=== PATIENT | male | born 1970 | race Caucasian/White ===

== ENCOUNTER 2016-05-14 06:36 | Emergency (ER) | payer BC, OTHER ==
[~2016-05-14] VITALS: Ht 167.6 cm; Wt 90.7 kg
[2016-05-14 07:00] VITALS: BP 140/100
[2016-05-14] MEDS ORDERED: HYDROmorphone HCL 2 MG/ML VL IM ONE (07:45)
[2016-05-14] MEDS ORDERED: ONDANSETRON HCL 4 MG/2 ML VIAL IM ONE (07:45)
== END 2016-05-14 08:50 | disposition home or self-care (01) ==
LOC: EDBD 06:36 → ER 06:43
DX: M54.5 Low back pain (principal); M54.2 Cervicalgia; R51 Headache; V43.53XA Car driver injured in collision with pick-up truck in traffic accident, initial encounter; Y93.89 Activity, other specified; Y99.8 Other external cause status; Y92.89 Other specified places as the place of occurrence of the external cause
CPT/HCPCS: 70450; 72125; 72131; 96372; 99285; J1170; J2405